=== PATIENT | female | born 1960 | race Caucasian/White ===

== ENCOUNTER → 2019-07-03 | Outpatient (CLI) | payer BC ==
[~2019-07-03] VITALS: Ht 160 cm; Wt 70.5 kg
[~2019-07-03] MED LIST: LIDOCAINE 1% INJ 20 ML 20 ML VIAL INJ ONE; LIDOCAINE 1% INJ 20 ML 20 ML VIAL ONE
--- NOTE | 2019-07-03 14:50 | Diagnostic Imaging Report ---
INDICATION: Left thyroid nodule. PROCEDURE: The patient presents for ultrasound-guided fine-needle aspiration. DESCRIPTION OF PROCEDURE: The patient was brought the procedure room and placed on the table in the supine position. Ultrasound imaging of the left neck was performed to evaluate appropriate entry site. Left neck was then prepped and draped in the usual sterile fashion. A small amount of 1% lidocaine was utilized for local anesthesia. A total of 4 passes were made into the dominant mixed solid and cystic nodule in the left lobe of the thyroid utilizing 25-gauge needles and fine-needle aspiration technique. The patient tolerated the procedure well and left the department in stable condition. IMPRESSION: Successful ultrasound-guided fine-needle aspiration of dominant left lobe thyroid mass. Pathology results are currently pending. Dictated by: Dictated on workstation # [id number]
== END ==
LOC: RAD 13:29
PROVIDERS: ATTEND Internal Medicine Endocrinology, Diabetes & Metabolism
DX: E04.2 Nontoxic multinodular goiter (principal)

== ENCOUNTER → 2020-01-05 | Outpatient (CLI) | payer BC | LOC: CARD 08:30 | PROVIDERS: ATTEND Internal Medicine Cardiovascular Disease | DX: I34.0 Nonrheumatic mitral (valve) insufficiency (principal); E66.9 Obesity, unspecified; R05 Cough | CPT/HCPCS: 93306 ==

== ENCOUNTER → 2020-01-12 | Outpatient (CLI) | payer BC ==
[~2020-01-12] VITALS: Ht 160 cm; Wt 79.0 kg
[~2020-01-12] MED LIST changes: -LIDOCAINE 1% INJ 20 ML 20 ML VIAL INJ ONE; -LIDOCAINE 1% INJ 20 ML 20 ML VIAL ONE; +REGADENOSON 0.4 MG/5 ML SYR (LEXISCAN) IV ONE
[2020-01-12] MEDS: CATHETER FLUSH 10 ML SYR IV PRN ×2 (07:47→09:24)
[2020-01-12 12:59] VITALS: BP 128/85
--- NOTE | 2020-01-12 12:59 | Cardiology Stress Test Report ---
Stress Test Report Date of Procedure/Referring: Date of Procedure: Jan 12, 2020 PCP Franci Nelson MD Admitting Physician Yina Case MD Indications: Chest pain Baseline Heart Rate: 53 Baseline Blood Pressure: Blood Pressure Systolic: 128 Blood Pressure Diastolic: 85 Baseline EKG: Baseline EKG: normal sinus rhythm Summary After explaining the procedure to the patient, she signed a consent and then brought to the stress nuclear laboratory. Patient received 0.4 mg Lexiscan for stress test, ECG, heart rate and blood pressure were monitored continuously. Resting and stress dose of radio tracer were injected, imaging was acquired and reviewed in short axis, horizontal long axis and vertical long axis views. TID: 1.07 SSS: 17 SDS: 17 EF: 71 1. Patient had significant nausea and vomiting after Lexiscan test. 2. Motion artifact and breast attenuation affecting the quality of the images there is questionable ischemia involving the mid to apical anterior wall and anterolateral wall, questionable ischemia at the basal to mid inferior wall 3. Normal left ventricular size, EF 71 percent FRANCI NELSON MD Jan 12, 2020 12:59
== END ==
LOC: CARD 08:15
PROVIDERS: ATTEND Internal Medicine Cardiovascular Disease
DX: R07.9 Chest pain, unspecified (principal); E66.9 Obesity, unspecified; R05 Cough; R06.02 Shortness of breath
CPT/HCPCS: 78452; 93017; A9502

== ENCOUNTER → 2020-01-26 | Outpatient (CLI) | payer BC ==
[~2020-01-26] MED LIST changes: +ALLO100T PO; +BUDE10.2 IH; +CELE100C PO; +ESCI20TA45 PO; +FURO20TA4 PO; +HYDR200T46 PO; +POTA10TA36 PO; +PRD20T PO; -REGADENOSON 0.4 MG/5 ML SYR (LEXISCAN) IV ONE; +RT-ALBUINH IH; +TIOT18CA2 IH
== END ==
LOC: LABNPT 05:48
PROVIDERS: ATTEND Internal Medicine Cardiovascular Disease
DX: Z01.812 Encounter for preprocedural laboratory examination (principal); Z20.828 Contact with and (suspected) exposure to other viral communicable diseases
CPT/HCPCS: 87635

== ENCOUNTER 2020-01-28 10:00 | Day surgery (SDC) | payer BC ==
[2020-01-28] VITALS (9 sets, daily range): BP systolic 135–152; BP diastolic 59–85
[~2020-01-28] VITALS: Ht 160 cm; Wt 73.6 kg
[2020-01-28 08:23] LABS: HEMOGLOBIN 13.6 g/dL (11.5-16.0); MEAN PLATELET VOLUME 10.4 fL (9.0-12.2); WHITE BLOOD COUNT 4.7 10^3/uL (4.3-11.0)
--- NOTE | 2020-01-28 08:34 | Diagnostic Imaging Report ---
INDICATION: Chest pain and shortness of breath. TIME OF EXAM: 8:18 AM. COMPARISON: No prior studies are available for comparison. FINDINGS: The heart size is normal. The left hemidiaphragm is elevated. The lungs are clear. The pulmonary vascularity is normal. No infiltrate, effusion, or pneumothorax is detected. IMPRESSION: No acute cardiopulmonary process is detected. Dictated by: Dictated on workstation # [id number]
[2020-01-28 08:40] LABS: ALBUMIN 4.1 GM/DL (3.2-4.5); POTASSIUM 3.3 MMOL/L (3.6-5.0)
[2020-01-28 08:42] LABS: INR 1.1 (0.8-1.4); PROTHROMBIN TIME PATIENT 14.4 SEC (12.2-14.7); TOTAL PROTEIN 8.3 GM/DL (6.4-8.2)
[2020-01-28 08:44] LABS: BILIRUBIN,TOTAL 0.7 MG/DL (0.1-1.0)
[2020-01-28 08:46] LABS: CREATININE SERUM 1.02 MG/DL (0.60-1.30)
--- NOTE | 2020-01-28 09:38 | NUR ---
SPOKE WITH THE PT (SHE HAS MOST OF HER MED BOTTLES WITH HER) AND CALLED [facility] TO COMPLETE THE MED REC 07-21-2019 CELEBREX 100MG #30- PT DID NOT HAVE THIS WITH HER AND PT SAYS SHE ONLY USES WHEN SHE IS WORKING 12-04-2019 SYMBICORT 160/4.5 #1- DIRECTIONS ARE 2 PUFFS BID HOWEVER PT ONLY USES 2 PUFFS ONCE DAILY 12-31-2019 ALBUTEROL HFA #1- PT DID NOT HAVE THIS MED IN THE MED BAG 01-22-2020 ESCITALOPRAM 20MG #30/30DS 01-22-2020 SPIRIVA #1/30DS 01-22-2020 HYDROXYCHLOROQUINE 200MG #120/30DS- I VERIFIED WITH PT THAT SHE TAKES ALL 4 TABS ONCE DAILY 01-22-2020 POTASSIUM 10MEQ #60/30DS 01-23-2020 PREDNISONE 20MG #10- DIRECTIONS SHOW 2 TABS DAILY HOWEVER PT SAYS SHE IS ONLY TAKES 1 TAB DAILY 01-23-2020 ALLOPURINOL 100MG #60/30DS 01-27-2020 FUROSEMIDE 20MG #68- DIRECTIONS SHOW 2-3 TABS DAILY, ACCORDING TO THE PT SHE TAKES 3 TABS TO EQUAL 60MG @HS PT DENIES TAKING ANY OTC PRODUCTS
[~2020-01-28 10:00] MED LIST changes: +HEParin (CATH LAB) 2,000 ML IV ONE; +HEParin 1000 UNIT/ML (10ML VIAL) FOR BOLUS ONE; +LIDOCAINE 1% INJ 20 ML 20 ML VIAL ONE; +MIDAZOLAM 5 MG/5 ML (VERSED) VIAL ONE; +NITRO DRIP 25000 MCG/D5W 250 ML IV ONE; +NS IV 1000 ML 1,000 ML IV SCH; +NS IV 1000 ML 1,000 ML ONE; +VERAPAMIL 5 MG/2 ML (CALAN) VIAL IV ONE; +fentaNYL INJECTION 100 MCG/2 ML AMP ONE
--- NOTE | 2020-01-28 10:01 | Cardiac Procedure Note-CS/ASA ---
Pre-Procedure Note Pre-Op Procedure Note H&P Reviewed The H&P was reviewed, patient examined and no changes noted. Date H&P Reviewed: Jan 28, 2020 Time H&P Reviewed: 10:00 Conscious Sedation Pre-Proced Time 10:00 ASA Score 3 For ASA 3 and 4: Consider anesthesia and medical clearance. Also, for patients with a history of failed moderate sedation consider anesthesia. Airway Lungs Heart ASA score ASA 1: a normal healthy patient ASA 2: a patient with a mild systemic disease (mid diabetes, controlled hypertension, obesity x ASA 3: a patient with a severe systemic disease that limits activity (angina, COPD, prior Myocardial infarction) ASA 4: a patient with an incapacitating disease that is a constant threat to life (CHF, renal failure) ASA 5: a moribund patient not expected to survive 24 hrs. (ruptured aneurysm) ASA 6: a declared brain- patient whose organs are being harvested. For emergent operations, add the letter E after the classification Mallampati Classification Grade 3 Sedation Plan Analgesia, Amnesia, Plan communicated to team members, Discussed options with patient/fam, Discussed risks with patient/fam The patient is an appropriate candidate to undergo the planned procedure, sedation, and anesthesia. The patient immediately re-assessed prior to indication. FRANCI LITTLE MD Jan 28, 2020 10:01
[2020-01-28] MEDS ORDERED: ADENOSINE 90 MG/30 ML (ADENOSCAN) VIAL IV ONE (10:38)
[2020-01-28] MEDS ORDERED: NS IV 1000 ML 1,000 ML IV SCH (10:50)
--- NOTE | 2020-01-28 10:52 | Discharge Inst-Post CATH ---
Discharge Inst-CATH/EP Problems Reviewed?: Yes Post Cardiac Cath/EP D/C Inst Follow Up/Plan Appointment with Dr. Nelson's office in 4 weeks <b>CARDIAC CATH/EP PROCEDURE DISCHARGE INSTRUCTIONS</b> ACTIVITY * Go Home directly and rest. * Limit activity of the leg (or wrist if it was used) for 7 days including aerobics, swimming, jogging, bicycling, etc. * Restrict stair-climbing for 7 days if possible, if not, climb up with your non-cath leg, then bring together on the same step. * Avoid lifting, pushing, pulling or excessive movement of the affected extremity for 7 days. * Customary sexual activity may be resumed after 2 days-use caution not to use a position that strains or causes pain to the affected extremity. * No driving for 24 hours. * NO SMOKING. * Avoid straining for bowel movements for 7 days. * Gentle walking on level ground is allowed. * Returning to work will depend on the type of procedure and the results. Your doctor will discuss this with you. CALL YOUR DOCTOR FOR ANY OF THE FOLLOWING: *If bleeding from the puncture site occurs- Apply gentle pressure to site with clean cloth and call your doctor or EMS. * If a knot or lump forms under the skin, increases in size, or causes pain. * If bruising appears to be worsening or moving further down your leg instead of disappearing. * Temperature above 101 F. CARE OF YOUR GROIN INCISION; * Bruising or purple discoloration of the skin near the puncture site is common. * You may shower only, no bathtub bathing for 5 days. Be careful to avoid slipping as your leg may feel stiff. * If a closure device was used on your femoral artery, please see the attached guide regarding care of the device and your leg. * Leave dressing on FOR 24 hours. CARE OF YOUR WRIST INCISION; * Bruising or purple discoloration of the skin near the puncture site is common. * You may shower. * DO NOT submerge wrist. * Leave dressing on FOR 24 hours. FRANCI NELSON MD Jan 28, 2020 10:52
--- NOTE | 2020-01-28 10:57 | Cardiac Cath Report ---
Cardiac Cath Report Physician (s)/Position Classification Manager (s) Physician FRANCI LITTLE MD Pre-Procedure Diagnosis Pre-Procedure Diagnosis: coronary artery disease Post-Procedure Note Procedure Start Date: Jan 28, 2020 Name of Procedure: Left heart catheterization FFR to the left main coronary artery Findings/Procedure Note PROCEDURE NOTE: 59-year-old lady with hypertension, hyperlipidemia, had an abnormal stress test, has been having chest pain, scheduled for cardiac catheterization possible PTCA. After explaining the procedure to the patient, all pros and cons were explained, all questions were answered. The patient signed the consent and then she was placed on the cardiac catheterization laboratory. Groin was prepped SL fashion local anesthesia was used. Sheath placed in the right radial artery, Alpine catheter was used and advanced to the left ventricular cavity. Pressure was measured no left ventricular gram was done. Then pulled back and advanced to the left main coronary system and angiogram was done then turned to the right coronary system and angiogram was done. I noted there was an ostial lesion in the left main appeared to be borderline. I reengaged the left main did angiogram then advanced FFR wire and measured the pressure across the lesion. It was 1.0. I was planning to initiate Adenosine , after positioning the catheter outside the left main I was unable to maintain the wire deep in the circumflex artery it prolapsed out. After realizing that the FFR is 1. I felt that there is no need to re-advance the wire again through the circumflex artery. At the end of the procedure the sheath was removed. Vascular band was used FINDINGS: Hemodynamics LV 90/6, end-diastolic pressure of 6 Aorta 83/58 mean of 63 ANATOMY: Left Main has 50 percent ostial stenosis, FFR across the left main is 1.0 Left Anterior Descending has mild disease in the midportion nonobstructive disease Left Circumflex has mild ectasia, no significant obstructive disease Right Coronory Artery is dominant artery with no obstructive disease LV Gram was not done, pressure was measured. CONCLUSION: 1. 50 percent ostial left main coronary artery stenosis, nonobstructive disease, FFR is 1.0 2. Mild ectasia in the circumflex artery, nonobstructive disease, mild disease in the LAD nonobstructive disease. 3. Normal left ventricular end-diastolic pressure DISCUSSION AND RECOMMENDATION: Medical therapy is recommended, no intervention is needed at this point. Continue to monitor Anesthesia Type: Conscious Sedation Estimated blood loss (mL): 10 ml Contrast Amount: 29 ml Total Radiation Dose: 256 mGy Post-Procedure Diagnosis Post-operative diagnosis: Chest pain Coronary artery disease Hypertension Hyperlipidemia FRANCI LITTLE MD Jan 28, 2020 10:57
--- NOTE | 2020-01-28 14:24 | NUR ---
PT WAS BROUGHT TO ME FROM [facility] [employer] [place] WITH 600ML LEFT HANGING IN HER IV OF LR. PTS HAD A TOTAL OF 450ML INTAKE VIA THE IV. FLUIDS WERE NEVER ORIGINALLY SCANNED FOR ME TO DOCUMENT ON.
== END 2020-01-28 13:40 ==
LOC: CATH 10:00 → SDC 11:34 → CATH 13:40
PROVIDERS: ATTEND Internal Medicine Cardiovascular Disease
DX: I25.10 Atherosclerotic heart disease of native coronary artery without angina pectoris (principal); I10 Essential (primary) hypertension; E78.5 Hyperlipidemia, unspecified; R94.39 Abnormal result of other cardiovascular function study; J44.9 Chronic obstructive pulmonary disease, unspecified; E66.9 Obesity, unspecified; Z68.28 Body mass index [BMI] 28.0-28.9, adult; F17.210 Nicotine dependence, cigarettes, uncomplicated; Z79.51 Long term (current) use of inhaled steroids; Z79.899 Other long term (current) drug therapy; Z88.2 Allergy status to sulfonamides; Z88.8 Allergy status to other drugs, medicaments and biological substances; Z80.9 Family history of malignant neoplasm, unspecified
CPT/HCPCS: 71045; 80053; 80061; 85027; 85610; 85730; 87081; 93458; 93571; C1769; C1894; 36415

== ENCOUNTER → 2020-03-15 | Outpatient (CLI) | payer BC ==
[~2020-03-15] MED LIST changes: +CATHETER FLUSH 10 ML SYR IV PRN; -HEParin (CATH LAB) 2,000 ML IV ONE; -HEParin 1000 UNIT/ML (10ML VIAL) FOR BOLUS ONE; +HOLD METFORMIN - RECEIVED CONTRAST 20 ML VIAL IV SCH; +IOHEXOL 350 MG/ML 100 ML (OMNIPAQUE 350) VIAL IV ONE; -LIDOCAINE 1% INJ 20 ML 20 ML VIAL ONE; -MIDAZOLAM 5 MG/5 ML (VERSED) VIAL ONE; -NITRO DRIP 25000 MCG/D5W 250 ML IV ONE; +NS 100 ML (IVPB) BAG IV ONE; -NS IV 1000 ML 1,000 ML IV SCH; -NS IV 1000 ML 1,000 ML ONE; -VERAPAMIL 5 MG/2 ML (CALAN) VIAL IV ONE; -fentaNYL INJECTION 100 MCG/2 ML AMP ONE
[2020-03-15 10:11] LABS: CREATININE SERUM 1.09 MG/DL (0.60-1.30)
--- NOTE | 2020-03-15 10:51 | Diagnostic Imaging Report ---
PROCEDURE: CT angiography of the chest with contrast. TECHNIQUE: Multiple contiguous axial images were obtained through the chest after uneventful bolus administration of intravenous contrast. 3D reconstructed CTA MIP acquisitions were also performed. Auto Exposure Controls were utilized during the CT exam to meet ALARA standards for radiation dose reduction. INDICATION: Chest pain There are no intraluminal pulmonary arterial filling defects. There is however prominence of the central and proximal pulmonary arterial branches raising the question of chronic pulmonary arterial hypertension. As example the main pulmonary arterial diameter was 4.4 cm at the level of a smaller ascending aortic diameter at 3.0 cm. The aorta is patent. No PE. Some zones of subsegmental curvilinear basilar atelectasis but no walker alveolar consolidation or bronchograms. No effusion or pneumothorax. No acute chest wall pathology. There is enlargement of the left thyroid lobe. Nonemergent outpatient ultrasound correlation recommended. Visualized upper abdomen reveals a innumerable calcifications throughout the enlarged spleen. 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 The adrenals are negative. IMPRESSION: No evidence for PE however findings raise the question of chronic pulmonary artery hypertension. Splenomegaly with splenic granulomatous disease. Partially visualized renal cysts and renal calcifications. Left lobe heterogeneous thyromegaly. Nonemergent outpatient correlation sonographically recommended. Dictated by: Dictated on workstation # [id number]
== END ==
LOC: RAD 10:15
PROVIDERS: ATTEND Nurse Practitioner Family
DX: Z03.89 Encounter for observation for other suspected diseases and conditions ruled out (principal); R07.9 Chest pain, unspecified; D73.89 Other diseases of spleen; N28.1 Cyst of kidney, acquired; N28.89 Other specified disorders of kidney and ureter; E01.0 Iodine-deficiency related diffuse (endemic) goiter; M79.609 Pain in unspecified limb; M79.89 Other specified soft tissue disorders; R06.00 Dyspnea, unspecified
CPT/HCPCS: 36415; 71275; 82565; 84520

== ENCOUNTER → 2020-04-05 | Outpatient (CLI) | payer BC, MEDICAID ==
[~2020-04-05] MED LIST changes: -CATHETER FLUSH 10 ML SYR IV PRN; -HOLD METFORMIN - RECEIVED CONTRAST 20 ML VIAL IV SCH; -IOHEXOL 350 MG/ML 100 ML (OMNIPAQUE 350) VIAL IV ONE; -NS 100 ML (IVPB) BAG IV ONE; +RT-ALBUTEROL SULF 2.5 MG/3 ML PRE-MIX VIAL INH ONE
--- NOTE | 2020-04-05 15:28 | Diagnostic Imaging Report ---
PROCEDURE: US Venous Lower Ext Guevara. TECHNIQUE: Multiple real-time grayscale images were obtained over the lower extremities in various projections, bilaterally. Additional duplex Doppler and color Doppler images were also obtained. INDICATION: Pulmonary embolism. FINDINGS: There is no evidence of right or left lower extremity DVT. Both lower extremity deep venous systems demonstrate normal compressibility with normal response to augmentation and Valsalva. No fluid collection or mass is detected. IMPRESSION: No evidence of right or left lower extremity DVT. Dictated by: Dictated on workstation # [id number]
== END ==
LOC: RT 15:00
PROVIDERS: ATTEND Nurse Practitioner Family
DX: Z03.89 Encounter for observation for other suspected diseases and conditions ruled out (principal); J44.9 Chronic obstructive pulmonary disease, unspecified; I26.99 Other pulmonary embolism without acute cor pulmonale; M79.609 Pain in unspecified limb; M79.89 Other specified soft tissue disorders
CPT/HCPCS: 93970; 94060; 94726; 94729